=== PATIENT | male | born 1985 ===

== ENCOUNTER 2017-08-16 02:20 | Emergency (ER) | payer MEDICAID ==
[~2017-08-16] VITALS: Ht 175.3 cm; Wt 74.8 kg
[2017-08-16 02:23] VITALS: BP 126/83
== END 2017-08-16 02:58 | disposition home or self-care (01) ==
LOC: EDUNIT# 02:20 → EDBD 02:20 → ER 02:26
DX: R07.89 Other chest pain (principal); Z53.21 Procedure and treatment not carried out due to patient leaving prior to being seen by health care provider

== ENCOUNTER 2021-10-21 18:26 | Emergency (ER) | payer MEDICAID ==
[~2021-10-21] VITALS: Ht 177.8 cm; Wt 100.0 kg
== END 2021-10-21 22:00 | disposition home or self-care (01) ==
LOC: EDBD 18:26 → ER 18:26
DX: T14.8XXA Other injury of unspecified body region, initial encounter (principal); R41.0 Disorientation, unspecified; F17.210 Nicotine dependence, cigarettes, uncomplicated; Z88.0 Allergy status to penicillin; Y04.2XXA Assault by strike against or bumped into by another person, initial encounter; Y93.89 Activity, other specified; Y92.89 Other specified places as the place of occurrence of the external cause; Y99.8 Other external cause status
CPT/HCPCS: 70450; 72125; 73200